=== PATIENT | male | born 1945 | race Caucasian/White ===

== ENCOUNTER 2018-11-13 19:01 | Observation (INO) ==
[2018-11-13 20:12] LABS: Basophils # 0.1 K/mcL (0.0-0.2); Basophils % 0.5 %; Eosinophils # 0.1 K/mcL (0.0-0.6); Eosinophils % 0.7 %; Hematocrit 23.3 % (37.5-50.1); Hemoglobin 7.8 g/dL (12.9-16.9); Immature Granulocytes % 1.5 % (0-4); Lymphocytes # 2.4 K/mcL (0.6-4.6); Lymphocytes % 17.2 %; Mean Corpuscular HGB Conc 33.5 g/dL (31.6-35.5); Mean Corpuscular Hemoglobin 30.2 pg (28.0-33.3); Mean Corpuscular Volume 90.3 fL (83.0-100.0); Mean Platelet Volume 10.5 fL (9.4-12.4); Monocytes # 0.8 K/mcL (0.0-1.3); Neutrophils # 10.2 K/mcL (1.6-8.9); Nucleated Red Blood Cells 0.7 /100 WBC (0); Platelet Count 201 K/mcL (140-400); Red Blood Count 2.58 M/mcL (4.19-5.50); Red Cell Distribution Width 14.2 % (11.5-14.5); Segmented Neutrophils % 74.1 %
[2018-11-13] MEDS ORDERED: Aspirin 325 MG TABLET PO ONE (20:24)
--- NOTE | 2018-11-13 20:28 | Emergency Department Note ---
Disposition Clinical Impression: Chest pain Qualifiers: Chest pain type: unspecified Qualified Code(s): R07.9 - Chest pain, unspecified Anemia Qualifiers: Anemia type: unspecified type Qualified Code(s): D64.9 - Anemia, unspecified GI bleed Qualifiers: GI bleed type/associated pathology: unspecified gastrointestinal hemorrhage type Qualified Code(s): K92.2 - Gastrointestinal hemorrhage, unspecified Chronic kidney disease Qualifiers: Chronic kidney disease stage: unspecified stage Qualified Code(s): N18.9 - Chronic kidney disease, unspecified Disposition: Admitted As Inpatient Condition: Fair Referrals: Matt Hurtado MD [Primary Care Provider] - Forms: ED Satisfaction Letter Time of Disposition: 21:06 General Adult HPI - General Chief complaint: ED Shortness of Breath/Dyspnea Stated complaint: KARIN Time Seen by Provider: 11/13/18 19:33 Source: patient Mode of arrival: ambulatory Limitations: no limitations Nursing Notes Reviewed: Yes Vital Signs Reviewed: Yes - History of Present Illness HPI Narrative: 73-year-old male penis for evaluation of dyspnea. Patient does have a history of hypertension, coronary artery disease with stent, diabetes, with remote history of renal cancer status post total nephrectomy presents for evaluation of dyspnea. Patient states that he has been feeling short of breath over the past couple days. States that dyspnea is worse with exertion and can only walk approximately 25 feet. Patient states prior to that point he could walk farther than that. Also notes increased weight gain over the winter months. Reported transient chest pain started prior to arrival. Left sided without radiation. No nausea vomiting or diaphoresis. No fevers or cough. Patient denies any lower leg swelling. No history of DVT or PE. No abdominal pain. No URI symptoms. Pain Scale: 0 - Related Data Home Medications Medication Instructions Recorded Confirmed Clopidogrel [Plavix] 75 mg PO DAILY 11/13/18 11/13/18 Gabapentin [Neurontin] 300 mg PO TID 11/13/18 11/13/18 Hydrochlorothiazide [Microzide] 12.5 mg PO TID 11/13/18 11/13/18 Allergies Allergy/AdvReac Type Severity Reaction Status Date / Time acetaminophen [From Percocet] AdvReac Headache Verified 11/13/18 12:33 oxycodone [From Percocet] AdvReac Headache Verified 11/13/18 12:33 All systems ED: reviewed and negative except as stated. Constitutional: Denies: fever Cardiovascular: Reports: chest pain Respiratory: Reports: dyspnea. Denies: cough Gastrointestinal: Denies: abdominal pain, nausea, vomiting Past Medical History - Past Medical History Attestation: Yes The following information was validated with the patient. Source: patient Medical history: Reports: cancer, hypertension, myocardial infarction - Social History Smoking Status: Never smoker Smokeless Tobacco Status: No Alcohol use: Reports: none Drug use: Reports: none Physical Exam - General Limitations: no limitations General appearance: alert, in no apparent distress, obese - Head Head exam: atraumatic, normocephalic, normal inspection - Eye Eye exam: Present: normal appearance, PERRL, EOMI - ENT ENT exam: normal exam, normal oropharynx, mucous membranes moist - Neck Neck exam: Present: normal inspection - Chest Chest inspection: Present: normal inspection - Respiratory Respiratory exam: Present: normal lung sounds bilaterally. Absent: respiratory distress - Cardiovascular Cardiovascular exam: Present: regular rate, normal rhythm. Absent: systolic murmur - Abdominal Exam Abdominal exam: Present: soft - Extremities Exam Extremities exam: Present: normal inspection. Absent: pedal edema - Back Exam Back exam: Present: normal inspection - Neurological Exam Neurological exam: Present: alert - Skin Skin exam: Present: warm, dry, intact, normal color Course Course Narrative: Patient seen and examined. Patient lungs are clear. Patient's complaining of dyspnea mostly with exertion. Patient will require a cardiopulmonary evaluation with EKG chest x-ray troponin. Patient was also deemed low risk given history of renal cancer in the past with unexplained dyspnea and tachycardia the patient is low risk for PE. - Reevaluation(s) Reevaluation #1: Patient hemoglobin is noted be low. Patient's complaining of dark stools over the past 3 days. Patient is on Plavix and aspirin. Patient did get aspirin earlier today when he is complaining of chest pain. Patient stent was in the remote past and we will hold all antiplatelet medications. Given the patient's cardiovascular disease with elevated lactate normal hemoglobin patient be transfused. Patient was deemed low risk for PE with a negative d-dimer. Time: 21:04 Vital Signs Temperature 97.3 F L 11/13/18 19:02 Pulse Rate 112 11/13/18 19:02 Respiratory Rate 22 11/13/18 19:02 Blood Pressure 146/81 11/13/18 19:02 O2 Sat by Pulse Oximetry 94 11/13/18 19:02 Temperature 97.3 F L 11/13/18 19:02 Pulse Rate 112 11/13/18 19:02 Respiratory Rate 22 11/13/18 19:02 Blood Pressure 146/81 11/13/18 19:02 O2 Sat by Pulse Oximetry 94 11/13/18 19:02 Oxygen Delivery Oxygen Delivery Room Air Medical Decision Making - MDM Narrative Medical decision making narrative: Patient presented for concerns of dyspnea. Initially the patient states dyspnea is mostly with exertion but did have transient chest pain. During the course the patient's ED evaluation was noted to be anemic. Ultimately on repeat history the patient's admitting to dark stools over the past 3 days and is on Plavix and aspirin. Patient has concerns of GI bleed. Given the patient's anemia in the setting of cardiovascular disease and chest pain. Patient will get a blood transfusion. Patient also get Protonix. D-dimer negative troponin negative patient be admitted for further evaluation and monitoring. - Lab Data Lab results reviewed: Yes I reviewed the patient's lab results. Result diagrams: 11/13/18 19:53 11/13/18 19:53 Lab Results 11/13/18 11/13/18 11/13/18 Range/Units 19:53 19:53 19:53 WBC 13.8 H (4.3-11.1) K/mcL RBC 2.58 L (4.19-5.50) M/mcL Hgb 7.8 L (12.9-16.9) g/dL Hct 23.3 L (37.5-50.1) % MCV 90.3 (83.0-100.0) fL MCH 30.2 (28.0-33.3) pg MCHC 33.5 (31.6-35.5) g/dL RDW 14.2 (11.5-14.5) % Plt Count 201 (140-400) K/mcL MPV 10.5 (9.4-12.4) fL Immature Gran % 1.5 (0-4) % Seg Neutrophils % 74.1 % Lymphocytes % 17.2 % Monocytes % 6.0 % Eosinophils % 0.7 % Basophils % 0.5 % Neutrophils # 10.2 H (1.6-8.9) K/mcL Lymphocytes # 2.4 (0.6-4.6) K/mcL Monocytes # 0.8 (0.0-1.3) K/mcL Eosinophils # 0.1 (0.0-0.6) K/mcL Basophils # 0.1 (0.0-0.2) K/mcL Nucleated RBCs/100 WBC 0.7 H (0) /100 WBC D-Dimer (0-500) ng/mLFEU Sodium 138 (136-145) mEq/L Potassium 3.6 (3.5-5.1) mEq/L Chloride 100 (98-107) mEq/L Carbon Dioxide 27 (23-29) mEq/L BUN 50 H (8-23) mg/dL Creatinine 1.55 H (0.70-1.30) mg/dL Est GFR ( Amer) 54 L (> 60) Est GFR (Non-Af Amer) 44 L (> 60) BUN/Creatinine Ratio 32 H (6-26) Glucose 283 H (70-105) mg/dL Calculated Osmolality 310 H (280-300) Lactic Acid 2.8 H (0.5-2.2) mmol/L Calcium 9.0 (8.6-10.3) mg/dL Total Bilirubin 0.2 L (0.3-1.0) mg/dL Direct Bilirubin 0.0 (0.0-0.2) mg/dL Indirect Bilirubin 0.2 (0.0-1.2) mg/dL AST 12 L (13-39) Units/L ALT 11 (7-52) Units/L Alkaline Phosphatase 43 (34-104) Units/L Troponin I < 0.03 (< 0.04) ng/mL Serum Total Protein 6.2 L (6.4-8.9) g/dL Albumin 3.8 (3.5-5.7) g/dL Globulin 2.4 (2.4-3.5) g/dL Albumin/Globulin Ratio 1.6 (1.1-2.2) Stool Occult Bld Scrn (Negative) 11/13/18 11/13/18 Range/Units 19:53 20:40 WBC (4.3-11.1) K/mcL RBC (4.19-5.50) M/mcL Hgb (12.9-16.9) g/dL Hct (37.5-50.1) % MCV (83.0-100.0) fL MCH (28.0-33.3) pg MCHC (31.6-35.5) g/dL RDW (11.5-14.5) % Plt Count (140-400) K/mcL MPV (9.4-12.4) fL Immature Gran % (0-4) % Seg Neutrophils % % Lymphocytes % % Monocytes % % Eosinophils % % Basophils % % Neutrophils # (1.6-8.9) K/mcL Lymphocytes # (0.6-4.6) K/mcL Monocytes # (0.0-1.3) K/mcL Eosinophils # (0.0-0.6) K/mcL Basophils # (0.0-0.2) K/mcL Nucleated RBCs/100 WBC (0) /100 WBC D-Dimer 344 (0-500) ng/mLFEU Sodium (136-145) mEq/L Potassium (3.5-5.1) mEq/L Chloride (98-107) mEq/L Carbon Dioxide (23-29) mEq/L BUN (8-23) mg/dL Creatinine (0.70-1.30) mg/dL Est GFR ( Amer) (> 60) Est GFR (Non-Af Amer) (> 60) BUN/Creatinine Ratio (6-26) Glucose (70-105) mg/dL Calculated Osmolality (280-300) Lactic Acid (0.5-2.2) mmol/L Calcium (8.6-10.3) mg/dL Total Bilirubin (0.3-1.0) mg/dL Direct Bilirubin (0.0-0.2) mg/dL Indirect Bilirubin (0.0-1.2) mg/dL AST (13-39) Units/L ALT (7-52) Units/L Alkaline Phosphatase (34-104) Units/L Troponin I (< 0.04) ng/mL Serum Total Protein (6.4-8.9) g/dL Albumin (3.5-5.7) g/dL Globulin (2.4-3.5) g/dL Albumin/Globulin Ratio (1.1-2.2) Stool Occult Bld Scrn Positive A (Negative) - Radiology Data Radiology results reviewed: Yes I reviewed the patient's radiology results. Chest X-Ray 11/13/18 19:05 IMPRESSION: No evidence of acute cardiopulmonary disease. D/ / Jacob Emmanuel MD / Jacob Emmanuel MD Interpreting Provider: Jacob Emmanuel MD - EKG Data EKG #1 EKG attestation: Yes I reviewed and interpreted this EKG. EKG shows normal: sinus rhythm Rate: tachycardia Merkel/QRS: normal, RBBB ST segment elevation in: II, III, aVF T wave inversions noted in: aVL (flattened) Interpretation: nonspecific ST-T wave changes S.B.AGmue - S.B.AGume Situation: Demographics Background: Presenting Complaint Assessment: Vital Signs, Course and respsone to treatment, Patient/Family Expectation Recommendation: Barrier(s) to disposition, Recommendation based on pending studies, treatments, or consults S.B.A.RAllan Report Given to: Dr. Drew MossAGume Repor Time: 21:08
[2018-11-13] MEDS ORDERED: 0.9 % Sodium Chloride 500 ML IVC ONE (20:29)
[2018-11-13 20:33] LABS: BUN/Creatinine Ratio 32 (6-26); Blood Urea Nitrogen 50 mg/dL (8-23); Carbon Dioxide 27 mEq/L (23-29); Chloride 100 mEq/L (98-107); Glucose 283 mg/dL (70-105); Osmolality,Calculated 310 (280-300); Potassium 3.6 mEq/L (3.5-5.1); Sodium 138 mEq/L (136-145); eGFR For Non-African Americans 44 (> 60)
[2018-11-13 20:35] LABS: Troponin I < 0.03 ng/mL (< 0.04)
--- NOTE | 2018-11-13 20:46 | Emergency Department Note ---
Disposition Clinical Impression: Chest pain, Anemia, GI bleed, Chronic kidney disease Disposition: Admitted As Inpatient Condition: Fair Referrals: Matt Hurtado MD [Primary Care Provider] - Forms: ED Satisfaction Letter General Adult HPI - General Chief complaint: ED Shortness of Breath/Dyspnea Stated complaint: KARIN Time Seen by Provider: 11/13/18 19:33 Source: patient Mode of arrival: ambulatory Limitations: no limitations - History of Present Illness Pain Scale: 0 - Related Data Home Medications Medication Instructions Recorded Confirmed Clopidogrel [Plavix] 75 mg PO DAILY 11/13/18 11/13/18 Gabapentin [Neurontin] 300 mg PO TID 11/13/18 11/13/18 Hydrochlorothiazide [Microzide] 12.5 mg PO TID 11/13/18 11/13/18 Allergies Allergy/AdvReac Type Severity Reaction Status Date / Time acetaminophen [From Percocet] AdvReac Headache Verified 11/13/18 12:33 oxycodone [From Percocet] AdvReac Headache Verified 11/13/18 12:33 Constitutional: Denies: fever Cardiovascular: Reports: chest pain Respiratory: Reports: dyspnea. Denies: cough Gastrointestinal: Denies: abdominal pain, nausea, vomiting Past Medical History - Past Medical History Medical history: Reports: cancer, hypertension, myocardial infarction - Social History Smoking Status: Never smoker Smokeless Tobacco Status: No Alcohol use: Reports: none Drug use: Reports: none Physical Exam - General Limitations: no limitations General appearance: alert, in no apparent distress, obese Course Vital Signs Temperature 97.3 F L 11/13/18 19:02 Pulse Rate 112 11/13/18 19:02 Respiratory Rate 22 11/13/18 19:02 Blood Pressure 146/81 11/13/18 19:02 O2 Sat by Pulse Oximetry 94 11/13/18 19:02 Temperature 97.3 F L 11/13/18 19:02 Pulse Rate 112 11/13/18 19:02 Respiratory Rate 22 11/13/18 19:02 Blood Pressure 146/81 11/13/18 19:02 O2 Sat by Pulse Oximetry 94 11/13/18 19:02 Oxygen Delivery Oxygen Delivery Room Air Medical Decision Making - Lab Data Result diagrams: 11/13/18 19:53 11/13/18 19:53 Lab Results 04/17/19 04/17/19 04/17/19 Range/Units 19:53 19:53 19:53 WBC 13.8 H (4.3-11.1) K/mcL RBC 2.58 L (4.19-5.50) M/mcL Hgb 7.8 L (12.9-16.9) g/dL Hct 23.3 L (37.5-50.1) % MCV 90.3 (83.0-100.0) fL MCH 30.2 (28.0-33.3) pg MCHC 33.5 (31.6-35.5) g/dL RDW 14.2 (11.5-14.5) % Plt Count 201 (140-400) K/mcL MPV 10.5 (9.4-12.4) fL Immature Gran % 1.5 (0-4) % Seg Neutrophils % 74.1 % Lymphocytes % 17.2 % Monocytes % 6.0 % Eosinophils % 0.7 % Basophils % 0.5 % Neutrophils # 10.2 H (1.6-8.9) K/mcL Lymphocytes # 2.4 (0.6-4.6) K/mcL Monocytes # 0.8 (0.0-1.3) K/mcL Eosinophils # 0.1 (0.0-0.6) K/mcL Basophils # 0.1 (0.0-0.2) K/mcL Nucleated RBCs/100 WBC 0.7 H (0) /100 WBC D-Dimer (0-500) ng/mLFEU Sodium 138 (136-145) mEq/L Potassium 3.6 (3.5-5.1) mEq/L Chloride 100 (98-107) mEq/L Carbon Dioxide 27 (23-29) mEq/L BUN 50 H (8-23) mg/dL Creatinine 1.55 H (0.70-1.30) mg/dL Est GFR ( Amer) 54 L (> 60) Est GFR (Non-Af Amer) 44 L (> 60) BUN/Creatinine Ratio 32 H (6-26) Glucose 283 H (70-105) mg/dL Calculated Osmolality 310 H (280-300) Lactic Acid 2.8 H (0.5-2.2) mmol/L Calcium 9.0 (8.6-10.3) mg/dL Total Bilirubin 0.2 L (0.3-1.0) mg/dL Direct Bilirubin 0.0 (0.0-0.2) mg/dL Indirect Bilirubin 0.2 (0.0-1.2) mg/dL AST 12 L (13-39) Units/L ALT 11 (7-52) Units/L Alkaline Phosphatase 43 (34-104) Units/L Troponin I < 0.03 (< 0.04) ng/mL Serum Total Protein 6.2 L (6.4-8.9) g/dL Albumin 3.8 (3.5-5.7) g/dL Globulin 2.4 (2.4-3.5) g/dL Albumin/Globulin Ratio 1.6 (1.1-2.2) Stool Occult Bld Scrn (Negative) 11/13/18 11/13/18 Range/Units 19:53 20:40 WBC (4.3-11.1) K/mcL RBC (4.19-5.50) M/mcL Hgb (12.9-16.9) g/dL Hct (37.5-50.1) % MCV (83.0-100.0) fL MCH (28.0-33.3) pg MCHC (31.6-35.5) g/dL RDW (11.5-14.5) % Plt Count (140-400) K/mcL MPV (9.4-12.4) fL Immature Gran % (0-4) % Seg Neutrophils % % Lymphocytes % % Monocytes % % Eosinophils % % Basophils % % Neutrophils # (1.6-8.9) K/mcL Lymphocytes # (0.6-4.6) K/mcL Monocytes # (0.0-1.3) K/mcL Eosinophils # (0.0-0.6) K/mcL Basophils # (0.0-0.2) K/mcL Nucleated RBCs/100 WBC (0) /100 WBC D-Dimer 344 (0-500) ng/mLFEU Sodium (136-145) mEq/L Potassium (3.5-5.1) mEq/L Chloride (98-107) mEq/L Carbon Dioxide (23-29) mEq/L BUN (8-23) mg/dL Creatinine (0.70-1.30) mg/dL Est GFR ( Amer) (> 60) Est GFR (Non-Af Amer) (> 60) BUN/Creatinine Ratio (6-26) Glucose (70-105) mg/dL Calculated Osmolality (280-300) Lactic Acid (0.5-2.2) mmol/L Calcium (8.6-10.3) mg/dL Total Bilirubin (0.3-1.0) mg/dL Direct Bilirubin (0.0-0.2) mg/dL Indirect Bilirubin (0.0-1.2) mg/dL AST (13-39) Units/L ALT (7-52) Units/L Alkaline Phosphatase (34-104) Units/L Troponin I (< 0.04) ng/mL Serum Total Protein (6.4-8.9) g/dL Albumin (3.5-5.7) g/dL Globulin (2.4-3.5) g/dL Albumin/Globulin Ratio (1.1-2.2) Stool Occult Bld Scrn Positive A (Negative) Critical Care Time Critical Care Time: Yes Total Critical Care Time: 40 Attestation: Critical care performed: Time is exclusive of separately billable procedures. Time includes: direct patient care, patient reassessment, coordination of patient care, interpretation of data (laboratory data, radiology data, and respiratory data), review of patient's medical records, medical consultation and documentation of patient care. Procedures included in critical care time: Procedures excluded from critical care time: t. Attestation Statement - Attestation Attestation: I examined this patient and my medical decision-making was reviewed with the Resident Physician. I agree with the documented findings, disposition and treatment plan as described except to the extent set forth below. Patient presents to the emergency department with a chief complaint of dyspnea on exertion. Onset several days ago. Dry cough. No fever. He does have a history of renal cancer for which she had an nephrectomy. Patient is thought to be cancer free at this time. He denies any pain or swelling in his legs. He de nies any history of blood clots. On examination he appears well. Lungs sounds clear. No pedal edema. He is satting well on room air. He is noted to be mildly tachycardic in the low 100s. Plan. Cardiac workup with d-dimer. Dimer is negative. Hemoglobin is low. Patient had a sore Hemoccult was positive. We will transfuse. Admitted to medicine. Chest X-Ray 11/13/18 19:05 IMPRESSION: No evidence of acute cardiopulmonary disease. D/ / Jacob Emmanuel MD / Jacob Emmanuel MD Interpreting Provider: Jacob Emmanuel MD
[2018-11-13 20:47] LABS: Alanine Aminotransferase 11 Units/L (7-52); Albumin 3.8 g/dL (3.5-5.7); Albumin/Globulin Ratio 1.6 (1.1-2.2); Alkaline Phosphatase 43 Units/L (34-104); Aspartate Amino Transferase 12 Units/L (13-39); Bilirubin,Indirect 0.2 mg/dL (0.0-1.2); Bilirubin,Total 0.2 mg/dL (0.3-1.0); Globulin 2.4 g/dL (2.4-3.5); Total Protein 6.2 g/dL (6.4-8.9)
[2018-11-13] MEDS ORDERED: Pantoprazole 40 MG VIAL IVP ONE (21:01)
[2018-11-13] MEDS ORDERED: Naloxone 0.4 MG/ML INJ IVP PRN (21:57)
[2018-11-13 22:17] LABS: Bilirubin,Urine Negative (Negative); Blood,Urine Negative (Negative); Clarity,Urine Clear (Clear); Color,Urine Yellow (Yellow); Glucose,Urine (UA) 100 mg/dL (Normal); Ketones,Urine Negative (Negative); Leukocyte Esterase,Urine Negative (Negative); Nitrite,Urine Negative (Negative); PH,Urine 6.5 pH Units (5.0-8.0); Protein,Urine Trace mg/dL (Neg-Trace); Specific Gravity,Urine 1.022 (1.010-1.025); Urobilinogen,Urine Normal (Normal)
[2018-11-14] MEDS ORDERED: 0.9 % Sodium Chloride 250 ML ONE ×2 (00:33→12:04)
[2018-11-14 05:39] LABS: Hematocrit 24.1 % (37.5-50.1); Hemoglobin 7.9 g/dL (12.9-16.9); Mean Corpuscular HGB Conc 32.8 g/dL (31.6-35.5); Mean Corpuscular Hemoglobin 29.6 pg (28.0-33.3); Mean Corpuscular Volume 90.3 fL (83.0-100.0); Mean Platelet Volume 10.5 fL (9.4-12.4); Platelet Count 194 K/mcL (140-400); Red Blood Count 2.67 M/mcL (4.19-5.50); Red Cell Distribution Width 14.6 % (11.5-14.5)
[2018-11-14 05:52] LABS: Calcium 8.8 mg/dL (8.6-10.3); Potassium 3.3 mEq/L (3.5-5.1)
[2018-11-14] MEDS ORDERED: 0.9 % Sodium Chloride 1,000 ML IVC ONE (06:32)
--- NOTE | 2018-11-14 06:37 | Internal Med History&Physical ---
Date of Encounter: 11/14/18 Time of Encounter: 04:00 Internal Medicine - H&P: HPI Chief complaint: GI bleed Admitted From: Emergency Dept Plans for Post Hospital Care: Home History of present illness: Mr. Lr is a 73 year old male Patient presented to the ER with feelings of shortness of breath and weakness. He states that he has woken up and was short of breath when he was trying to walk to his dining room. He went to his PCP in [place] for evaluation, because he thought he had pneumonia. He had a similar presentation like this previously and it started with shortness of breath. After being evaluated there, his PCP recommended he go to the emergency room as patient also mentioned to him that he had black stools 3 days ago. He never had this before. He has history of colonoscopy 8 years ago, says that he had one polyp that was found, and removed. He denies vomiting blood, and denies bright red blood in his stool. He is also had on and off chest pain with no radiation. He is also noted about a 40 pound weight gain over the last several months. His PCP recently diagnosed him with diabetes, for which he takes oral medications. Upon arrival to the emergency room, patient's vitals indicated elevated heart rate of 112 and respiratory rate of 22. He was saturating at 94% on room air. Patient's CBC revealed a white count of 13.8, and hemoglobin of 7.8. A d-dimer was ordered but was not elevated. BMP revealed a creatinine of 1.55 which is approximately his baseline. Glucose was 283 and lactic acid was 2.0. Patient's troponin was undetectable. Urinalysis was negative for infection, and stool occult blood test was positive. Patient was typed and screened, and patient was transfused 1 unit. He was transferred to the medical floor for further management. Upon my evaluation, patient is resting comfortably in hospital bed in no acute distress. He denies chest pain, abdominal pain, nausea, vomiting, diarrhea and constipation. He confirms the history above, and also states that he has a history of renal cancer, status post nephrectomy patient also has 1 cardiac stent placed. He denies significant family history of colon cancer or other types of cancers, but does say that diabetes runs on both sides of his family. He is a full code. Past Med Surg Social Fam HX - Past Medical History Medical history: cancer, diabetes, hypertension, myocardial infarction Additional medical history: kidney cancer, AR with stent - Past Surgical History Surgical History: angioplasty/stent, herniorrhaphy Additional surgical history: R kidney removal, 1 cardiac stent, 2 spinal fusions - Social History Smoking Status: Never smoker Smokeless Tobacco Status: No Alcohol use: none Drug use: none Internal Medicine - H&P: Meds Aspirin [Lo-Dose Aspirin EC] 81 mg PO DAILY 11/13/18 [History] Clopidogrel [Plavix] 75 mg PO DAILY 11/13/18 [History] Gabapentin [Neurontin] 300 mg PO BID 11/13/18 [History] Glimepiride [Amaryl] 4 mg PO DAILY 11/13/18 [History] HYDROcodone/Acet 5/325 mg [Hanna 5-325 mg] 1 tab PO BID PRN 11/13/18 [History] Hydrocodone/Acetaminophen [[place]anna 5-325 Tablet] 2 tab PO HS 11/13/18 [History] hydroCHLOROthiazide [Hydrochlorothiazide] 25 mg PO DAILY 11/13/18 [History] Allergy/AdvReac Type Severity Reaction Status Date / Time acetaminophen [From Percocet] AdvReac Headache Verified 11/13/18 21:37 oxycodone [From Percocet] AdvReac Headache Verified 11/13/18 21:37 All Systems PM: A 10-system review of systems was performed and is negative for pertinent findings except as documented above in the HPI. - Constitutional Vitals: Temp Pulse Resp BP Pulse Ox 97.4 F L 91 14 119/67 93 11/14/18 04:07 11/14/18 04:07 11/14/18 04:07 11/14/18 04:07 11/14/18 04:07 General appearance: Present: cooperative, A&O X 3, pleasant, no acute distress, answers questions appropriately Exam: - - Head Head exam: Present: normal inspection - Eye Eye exam: Present: EOMI, normal appearance - Respiratory Respiratory exam: Present: CTAB. Absent: rales, respiratory distress, rhonchi, wheezes - Cardiovascular Cardiovascular exam: Present: RRR. Absent: diastolic murmur, systolic murmur - GI/Abdominal GI/Abdominal exam: Present: normal bowel sounds, soft. Absent: tenderness - Extremities Exam Extremities exam: Present: warm, radial pulses palpable and symmetrical. Absent: calf tenderness, pedal edema, tenderness - Neurological Exam Neurological exam: Present: no focal deficits, strengths equal and symetr throughout. Absent: motor sensory deficit, facial droop, speech deficit Additional comments: Patient has a left foot drop at baseline secondary to back surgery - Skin Skin exam: Present: dry, normal color, warm Internal Med - H&P Results - Labs CBC & Chem 7: 11/14/18 04:57 11/14/18 04:57 Labs: Short CBC 11/13/18 11/14/18 Range/Units 19:53 04:57 WBC 13.8 H 13.4 H (4.3-11.1) K/mcL Hgb 7.8 L 7.9 L (12.9-16.9) g/dL Hct 23.3 L 24.1 L (37.5-50.1) % Plt Count 201 194 (140-400) K/mcL Neutrophils # 10.2 H (1.6-8.9) K/mcL BMP 11/13/18 11/14/18 19:53 04:57 Sodium 138 138 Potassium 3.6 3.3 L Chloride 100 104 Carbon Dioxide 27 29 BUN 50 H 45 H Creatinine 1.55 H 1.52 H Glucose 283 H 132 H Calcium 9.0 8.8 Cardiac Enzymes 11/13/18 Range/Units 19:53 Troponin I < 0.03 (< 0.04) ng/mL Liver Function 11/13/18 Range/Units 19:53 Total Bilirubin 0.2 L (0.3-1.0) mg/dL Direct Bilirubin 0.0 (0.0-0.2) mg/dL AST 12 L (13-39) Units/L ALT 11 (7-52) Units/L Alkaline Phosphatase 43 (34-104) Units/L Albumin 3.8 (3.5-5.7) g/dL Urine 11/13/18 Range/Units 22:11 Urine Color Yellow (Yellow) Urine Clarity Clear (Clear) Urine pH 6.5 (5.0-8.0) pH Units Ur Specific [place] 1.022 (1.010-1.025) Urine Protein Trace (Neg-Trace) mg/dL Urine Glucose (UA) 100 H (Normal) mg/dL - Impressions ITS Impressions Chest X-Ray 11/13/18 19:05 IMPRESSION: No evidence of acute cardiopulmonary disease. D/ / Jacob Emmanuel MD / Jacob Emmanuel MD Interpreting Provider: Jacob Emmanuel MD - Assessment and Plan (1) GI bleed Current Visit: Yes Status: Acute Assessment and plan: Positive stool occult blood tests. Patient's hemoglobin 7.8 and emergency room, on recheck 7.9 after 1 unit PRBCs. Continue to trend hemoglobin GI consult Nothing by mouth IV protonix Qualifiers: GI bleed type/associated pathology: unspecified gastrointestinal hemorrhage type Qualified Code(s): K92.2 - Gastrointestinal hemorrhage, unspecified (2) Anemia Current Visit: Yes Status: Acute Assessment and plan: Secondary to GI bleed. Patient was transfused 1 unit in the emergency room after type and screen. Hemoglobin 7.9 after 1 unit, on admission hemoglobin was 7.8. GI consult in the morning for likely scope Management as above Qualifiers: Anemia type: unspecified type Qualified Code(s): D64.9 - Anemia, unspecified (3) Chest pain Current Visit: Yes Status: Acute Assessment and plan: Patient denies chest pain currently. Initial troponin undetectable, on recheck troponin continues to be undetectable. Likely chest pain secondary to shortness of breath as patient is anemic. compliance monitor Continue to trend troponins Consider echocardiogram in the morning Qualifiers: Chest pain type: unspecified Qualified Code(s): R07.9 - Chest pain, unspecified (4) Dyspnea Current Visit: No Status: Acute Assessment and plan: Likely secondary to anemia. No wheezing on exam. Patient has no history of smoking. Management of anemia as above Qualifiers: Dyspnea type: shortness of breath Qualified Code(s): R06.02 - Shortness of breath; R06.00 - Dyspnea, unspecified; R06.01 - Orthopnea (5) Diabetes Current Visit: Yes Status: Acute Assessment and plan: Patient is not an insulin dependent diabetic Monitor sugars every 6 hours Nothing by mouth Low dose insulin sliding scale as needed Hold home meds. 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
[2018-11-14] MEDS ORDERED: Dextrose Gel 15 GM/37.5 ML TUBE PO PRN ×2 (06:55)
[2018-11-14] MEDS ORDERED: D5% in Water 1,000 ML IVC PRN (06:55)
[2018-11-14] MEDS ORDERED: *HR* Dextrose 50 % in Water (Syg) 50 ML SYRINGE IVP PRN (06:55)
[2018-11-14 09:02] LABS: % Iron Saturation 26 % (20-55); Iron 88 mcg/dL (65-175); Transferrin 239 mg/dL (203-362)
--- NOTE | 2018-11-14 09:02 | Internal Med Progress Note ---
<Latanya Birch - Last Filed: 11/14/18 16:22> Hospitalist Progress Note - Encounter Date of Encounter: 11/14/18 - Exam Vitals: Temp Pulse Resp BP Pulse Ox 97.6 F 91 14 108/70 93 11/14/18 10:36 11/14/18 10:36 11/14/18 10:36 11/14/18 10:36 11/14/18 10:36 - Assessment and Plan (1) Chest pain Current Visit: Yes Status: Acute (2) Anemia Current Visit: Yes Status: Acute (3) GI bleed Current Visit: Yes Status: Acute (4) Diabetes Current Visit: Yes Status: Acute (5) Hypokalemia Current Visit: Yes Status: Acute - Time Spent with Patient Total time spent is greater than 50% in coordination of care (as documented) at patient's floor/unit and/or counseling patient: Internal Medicine: Result - Labs CBC & Chem 7: 11/14/18 04:57 11/14/18 04:57 Labs: Short CBC 11/13/18 11/14/18 Range/Units 19:53 04:57 WBC 13.8 H 13.4 H (4.3-11.1) K/mcL Hgb 7.8 L 7.9 L (12.9-16.9) g/dL Hct 23.3 L 24.1 L (37.5-50.1) % Plt Count 201 194 (140-400) K/mcL Neutrophils # 10.2 H (1.6-8.9) K/mcL BMP 11/13/18 11/14/18 19:53 04:57 Sodium 138 138 Potassium 3.6 3.3 L Chloride 100 104 Carbon Dioxide 27 29 BUN 50 H 45 H Creatinine 1.55 H 1.52 H Glucose 283 H 132 H Calcium 9.0 8.8 Cardiac Enzymes 11/13/18 11/14/18 11/14/18 Range/Units 19:53 04:57 07:38 Troponin I < 0.03 < 0.03 < 0.03 (< 0.04) ng/mL Liver Function 11/13/18 Range/Units 19:53 Total Bilirubin 0.2 L (0.3-1.0) mg/dL Direct Bilirubin 0.0 (0.0-0.2) mg/dL AST 12 L (13-39) Units/L ALT 11 (7-52) Units/L Alkaline Phosphatase 43 (34-104) Units/L Albumin 3.8 (3.5-5.7) g/dL Urine 11/13/18 Range/Units 22:11 Urine Color Yellow (Yellow) Urine Clarity Clear (Clear) Urine pH 6.5 (5.0-8.0) pH Units Ur Specific [place] 1.022 (1.010-1.025) Urine Protein Trace (Neg-Trace) mg/dL Urine Glucose (UA) 100 H (Normal) mg/dL - ABG Interpretation ABG results: PT/INR, D-dimer PT 13.3 Seconds (9.4-12.1) H 11/14/18 11:53 D-Dimer 344 ng/mLFEU (0-500) 11/13/18 19:53 - Impressions Impressions Chest X-Ray 11/13/18 19:05 IMPRESSION: No evidence of acute cardiopulmonary disease. D/ / Jacob Emmanuel MD / Jacob Emmaunel MD Interpreting Provider: Jacob Emmanuel MD Consult Discharge Plan - Plan Referrals: Matt Hurtado MD [Primary Care Provider] - - Attending Attestation I examined this patient and my medical decision-making was reviewed with the Resident Physician Dr Gregory. I agree with the documented findings, disposition and treatment plan as described except to the extent set forth below. Mr Lr is being observed for suspected gib and anemia awake, pleasant, awaiting gi eval. He has had no bms since admit, no bleeding, no abd pain, n/v. notes 3 days ago black bms which were new. no nsaids, iron supplements. He has taken pepto bismol this week but after melena occurred. No further chest pain, no pressure, sob, palpitations or presyncope. last stent was 5 years ago. gen- alert, awake,appears stated age eyes- pupils equal round, no conjunctival pallor cv- reg rate and rhythm, normal s1,s2, no murmurs appreciated, no le edema lungs- ctabl, no wheezing, rhonchi or crackles, normal resp effort abd- soft, non tender, non distended, + bs neuro- AAOx3 Shortness of breath, without hypoxia, suspect 2/2 gib anemia- CXR neg, gib work up/treatment Melena, stool occult + GIB -s/p prbcs, serial h/hs, npo, gi eval, IV PPI -prbc to keep hgb >8 with CAD hx and chest pain on admit Acute anemia 2/2 gi blood loss as above Hemodynamically stable Leukocytosis likely stress reaction in setting of bleed as afebrile and ros neg- cont to monitor UA and CXR neg Chest pain, resolved CAD Hx with PCI most recently 5 yr ago HTN -hold home asa/plavix in setting of bleed -trops negative and ekg without ischemic changes further diagnoses and plan as noted by resident <Rashaad Gregory - Last Filed: 11/14/18 17:47> Hospitalist Progress Note - Encounter Date of Encounter: 11/14/18 Time of Encounter: 08:45 - Subjective Interval History: Patient seen and examined at bedside; states that he is feeling well today. De nies having any abdominal pain. He has not had a bowel movement yet this morning. Denies having any chest pain, palpitations, shortness of breath, dizziness, or lightheadedness. No complaints at this time. - Exam Vitals: Temp Pulse Resp BP Pulse Ox 98.1 F 97 14 112/64 92 11/14/18 06:33 11/14/18 06:33 11/14/18 06:33 11/14/18 06:33 11/14/18 06:33 Exam: General: A&O X3, conversant, no acute distress Head: atraumatic, normocephalic Eye: PERRL, EOMI, conjuntiva pink, sclera anicteric Neck: Supple, trachea midline; No lymphadenopathy Respiratory: CTAB. No accessory muscle use, wheezes, rales, or rhonchi Cardiovascular: RRR, +S1, +S2; no murmurs, rubs, gallops Abdomen: Soft, nontender Extremities: warm, radial pulses palpable and symmetrical Psychiatric: Normal affect, normal mood Skin: Dry, intact - Assessment and Plan (1) GI bleed Current Visit: Yes Status: Acute Assessment and Plan: - Initially presented with shortness of breath and weakness; reported dark colored stools 3 days prior to presentation - Colonoscopy 8 years ago; one polyp was found and removed - Denied bright red blood per rectum - FOBT was positive - Labs demonstrated a low hemoglobin at 7.8; patient was transfused with one unit of packed red blood cells - Repeat hemoglobin this morning is 7.9 - GI has been consulted; plan is for EGD later today Plan: - Currently nothing by mouth - IV protonix - EGD this afternoon (2) Anemia Current Visit: Yes Status: Acute Assessment and Plan: - As above (3) Chest pain Current Visit: Yes Status: Acute Assessment and Plan: - Initially complained of chest pain - Initial troponin was less than 0.03; subsequent troponin is less than 0.03 - Continuous telemetry (4) Hypokalemia Current Visit: Yes Status: Acute Assessment and Plan: - Potassium is noted to be low at 3.3 - Will replace (5) Diabetes Current Visit: Yes Status: Acute Assessment and Plan: - Sliding scale insulin - Time Spent with Patient Total time spent is greater than 50% in coordination of care (as documented) at patient's floor/unit and/or counseling patient: 25 - 35 minutes Internal Medicine: Result - Labs CBC & Chem 7: 11/14/18 04:57 11/14/18 04:57 Labs: Short CBC 11/13/18 11/14/18 Range/Units 19:53 04:57 WBC 13.8 H 13.4 H (4.3-11.1) K/mcL Hgb 7.8 L 7.9 L (12.9-16.9) g/dL Hct 23.3 L 24.1 L (37.5-50.1) % Plt Count 201 194 (140-400) K/mcL Neutrophils # 10.2 H (1.6-8.9) K/mcL BMP 11/13/18 11/14/18 19:53 04:57 Sodium 138 138 Potassium 3.6 3.3 L Chloride 100 104 Carbon Dioxide 27 29 BUN 50 H 45 H Creatinine 1.55 H 1.52 H Glucose 283 H 132 H Calcium 9.0 8.8 Cardiac Enzymes 11/13/18 11/14/18 11/14/18 Range/Units 19:53 04:57 07:38 Troponin I < 0.03 < 0.03 < 0.03 (< 0.04) ng/mL Liver Function 11/13/18 Range/Units 19:53 Total Bilirubin 0.2 L (0.3-1.0) mg/dL Direct Bilirubin 0.0 (0.0-0.2) mg/dL AST 12 L (13-39) Units/L ALT 11 (7-52) Units/L Alkaline Phosphatase 43 (34-104) Units/L Albumin 3.8 (3.5-5.7) g/dL Urine 11/13/18 Range/Units 22:11 Urine Color Yellow (Yellow) Urine Clarity Clear (Clear) Urine pH 6.5 (5.0-8.0) pH Units Ur Specific [place] 1.022 (1.010-1.025) Urine Protein Trace (Neg-Trace) mg/dL Urine Glucose (UA) 100 H (Normal) mg/dL - ABG Interpretation ABG results: PT/INR, D-dimer D-Dimer 344 ng/mLFEU (0-500) 11/13/18 19:53 - Impressions Impressions Chest X-Ray 11/13/18 19:05 IMPRESSION: No evidence of acute cardiopulmonary disease. D/ / Jacob Emmanuel MD / Jacob Emmanuel MD Interpreting Provider: Jacob Emmanuel MD <Latanya Birch - Last Filed: 11/14/18 16:22> (1) Chest pain Qualifiers: Chest pain type: unspecified Qualified Code(s): R07.9 - Chest pain, unspecified (2) Anemia Qualifiers: Anemia type: unspecified type Qualified Code(s): D64.9 - Anemia, unspecified (3) GI bleed Qualifiers: GI bleed type/associated pathology: unspecified gastrointestinal hemorrhage type Qualified Code(s): K92.2 - Gastrointestinal hemorrhage, unspecified (4) Diabetes Qualifiers: Diabetes mellitus type: type 2 Diabetes mellitus terminal operations supervisor insulin use: without terminal operations supervisor use Diabetes mellitus complication status: with hyperglycemia Qualified Code(s): E11.65 - Type 2 diabetes mellitus with hyperglycemia <Rashaad Gregory - Last Filed: 11/14/18 17:47> (1) GI bleed Qualifiers: GI bleed type/associated pathology: unspecified gastrointestinal hemorrhage type Qualified Code(s): K92.2 - Gastrointestinal hemorrhage, unspecified (2) Anemia Qualifiers: Anemia type: unspecified type Qualified Code(s): D64.9 - Anemia, unspecified (3) Chest pain Qualifiers: Chest pain type: unspecified Qualified Code(s): R07.9 - Chest pain, unspecified (5) Diabetes Qualifiers: Diabetes mellitus type: type 2 Diabetes mellitus snf insulin use: without terminal operations supervisor use Diabetes mellitus complication status: with hyperglycemia Qualified Code(s): E11.65 - Type 2 diabetes mellitus with hyperglycemia
[2018-11-14 09:20] LABS: Ferritin 171 ng/mL (20-250)
[2018-11-14 09:31] LABS: Folate 17.7 ng/mL (3.0-16.0)
[2018-11-14] MEDS ORDERED: Cyanocobalamin (B-12) 1,000 MCG/ML VIAL SQ ONE (11:36)
--- NOTE | 2018-11-14 12:19 | Gastroenterology Consult Note ---
<OrtizErmias grullon Jero - Last Filed: 11/14/18 12:17> Date of Encounter: 11/14/18 Time of Encounter: 10:00 - Assessment and plan (1) GI bleed Current Visit: Yes Status: Acute Assessment and plan: Patient with black tarry stools over the past 3-4 days. Plan for EGD today to r/o esophagitis, gastritis, duodenitis, PUD, MW tear, or AVM. Keep patient NPO for EGD. Qualifiers: GI bleed type/associated pathology: unspecified gastrointestinal hemorrhage type Qualified Code(s): K92.2 - Gastrointestinal hemorrhage, unspecified (2) Anemia Current Visit: Yes Status: Acute Assessment and plan: Secondary to GI bleed. On admission Hgb 7.8 and FOBT positive, and received 1 unit PRBC. Hgb this AM 7.9. Continue to monitor CBC and transfuse PRBC as needed. Plan for EGD today. Qualifiers: Anemia type: unspecified type Qualified Code(s): D64.9 - Anemia, unspecified - Time Spent With Patient Total time spent is greater than 50% in coordination of care (as documented) at patient's floor/unit and/or counseling patient: GI History of Present Illness - Data of Consult Patient: new to practice Consult date: 11/14/18 Requesting Physician: Latanya Birch - Consult Narrative Reason for consult: GI bleed History of present illness: Mr. Lr is a 73 year old male with PMHx of kidney cancer, DM, HTN, NH with stent was sent to the ED by his PCP for complaints of shortness of breath, weakness, and black stool. He deneis any abdominal pain, nausea, vomiting, hematemesis, coffee-ground emesis, or hematochezia. On admission Hgb 7.8 and FOBT positive, and received 1 unit PRBC. Hgb this AM 7.9. We were consulted to evaluate his black stools and anemia. Procedures: Colonoscopy 10/02/2011 Sever: 3mm and 4mm tubular adenoma. NSAIDs: ASA Anticoagulation: Plavix Past Med Surg Social Fam HX - Past Medical History Medical history: cancer, diabetes, hypertension, myocardial infarction Additional medical history: kidney cancer, NH with stent - Past Surgical History Surgical History: angioplasty/stent, herniorrhaphy Additional surgical history: R kidney removal, 1 cardiac stent, 2 spinal fusions - Social History Smoking Status: Never smoker Smokeless Tobacco Status: No Alcohol use: none Drug use: none - Gastrointestinal Gastrointestinal: Present: as per HPI - Constitutional Constitutional: as per HPI - EENT Eyes: as per HPI Ears: Present: as per HPI Nose, mouth and throat: Present: as per HPI - Cardiovascular Cardiovascular ROS: Present: as per HPI - Respiratory Respiratory IM: Present: as per HPI - Genitourinary Genitourinary: Absent: change in color, Urinary frequency - Neurological ROS Neurological GI: Present: as per HPI - Hematologic/Lymphatic Hematologic/Lymphatic pediatric: Present: as per HPI - Musculoskeletal Musculoskeletal ROS GI: Present: as per HPI - Integumentary Integumentary GI: Present: as per HPI - Psychiatric ROS Psychiatric GI: Present: as per HPI - Endocrine Endocrine IM: Present: as per HPI - Constitutional Vitals: Temp Pulse Resp BP Pulse Ox 97.6 F 91 14 108/70 93 11/14/18 10:36 11/14/18 10:36 11/14/18 10:36 11/14/18 10:36 11/14/18 10:36 General appearance: Present: cooperative, A&O X 3, no acute distress, answers questions appropriately - Head Head exam: Present: atraumatic, normocephalic - Eye Eye exam: Present: normal appearance, sclera anicteric - ENT ENT exam: Present: mucous membranes dry - Neck Neck exam general surgery: Present: normal inspection, trachea midline - Respiratory Respiratory exam: Present: CTAB. Absent: rales, rhonchi - Cardiovascular Cardiovascular exam: Present: RRR, +S1, +S2 - GI/Abdominal GI/Abdominal exam: Present: soft, no peritoneal signs. Absent: distended, firm, guarding, tenderness - Rectal Rectal exam: Present: deferred - Extremities Exam Extremities exam: Present: warm - Neurological Exam Neurological exam: Present: no focal deficits - Psychiatric Psychiatric exam: Present: normal affect, normal mood - Skin Skin exam: Present: dry, intact, normal color, warm Results - Labs CBC & Chem 7: 11/14/18 04:57 11/14/18 04:57 Labs: Last Result Calcium 8.8 mg/dL (8.6-10.3) 11/14/18 04:57 Iron 88 mcg/dL (65-175) 11/13/18 19:53 % Saturation 26 % (20-55) 11/13/18 19:53 Transferrin 239 mg/dL (203-362) 11/13/18 19:53 Ferritin 171 ng/mL (20-250) 11/13/18 19:53 Troponin I < 0.03 ng/mL (< 0.04) 11/14/18 07:38 Vitamin B12 210 pg/mL (250-1100) L 11/13/18 19:53 Folate 17.7 ng/mL (3.0-16.0) H 11/13/18 19:53 Entire Visit Hgb 7.9 g/dL (12.9-16.9) L 11/14/18 04:57 Hct 24.1 % (37.5-50.1) L 11/14/18 04:57 Ferritin 171 ng/mL (20-250) 11/13/18 19:53 Total Bilirubin 0.2 mg/dL (0.3-1.0) L 11/13/18 19:53 AST 12 Units/L (13-39) L 11/13/18 19:53 ALT 11 Units/L (7-52) 11/13/18 19:53 Folate 17.7 ng/mL (3.0-16.0) H 11/13/18 19:53 - ABG ABG results: PT/INR, D-dimer D-Dimer 344 ng/mLFEU (0-500) 11/13/18 19:53 - Impressions Impressions Chest X-Ray 11/13/18 19:05 IMPRESSION: No evidence of acute cardiopulmonary disease. D/ / Jacob Emmanuel MD / Jacob Emmanuel MD Interpreting Provider: Jacob Emmanuel MD Consult Discharge Plan - Plan Referrals: Matt Hurtado MD [Primary Care Provider] - <Lan Arora - Last Filed: 11/14/18 18:55> Date of Encounter: 11/14/18 Time of Encounter: 17:00 - Time Spent With Patient Total time spent is greater than 50% in coordination of care (as documented) at patient's floor/unit and/or counseling patient: GI History of Present Illness - Data of Consult Requesting Physician: Latanya Birch - Consult Narrative History of present illness: Mr. Lr is a 73 year old male - Constitutional Vitals: Temp Pulse Resp BP Pulse Ox 97.7 F 85 20 152/89 99 11/14/18 15:14 11/14/18 18:10 11/14/18 18:10 11/14/18 18:10 11/14/18 18:10 Results - Labs CBC & Chem 7: 11/14/18 04:57 11/14/18 04:57 Labs: Last Result Calcium 8.8 mg/dL (8.6-10.3) 11/14/18 04:57 Iron 88 mcg/dL (65-175) 11/13/18 19:53 % Saturation 26 % (20-55) 11/13/18 19:53 Transferrin 239 mg/dL (203-362) 11/13/18 19:53 Ferritin 171 ng/mL (20-250) 11/13/18 19:53 Troponin I < 0.03 ng/mL (< 0.04) 11/14/18 07:38 Vitamin B12 210 pg/mL (250-1100) L 11/13/18 19:53 Folate 17.7 ng/mL (3.0-16.0) H 11/13/18 19:53 Entire Visit Hgb 7.9 g/dL (12.9-16.9) L 11/14/18 04:57 Hct 24.1 % (37.5-50.1) L 11/14/18 04:57 PT 13.3 Seconds (9.4-12.1) H 11/14/18 11:53 Ferritin 171 ng/mL (20-250) 11/13/18 19:53 Total Bilirubin 0.2 mg/dL (0.3-1.0) L 11/13/18 19:53 AST 12 Units/L (13-39) L 11/13/18 19:53 ALT 11 Units/L (7-52) 11/13/18 19:53 Folate 17.7 ng/mL (3.0-16.0) H 11/13/18 19:53 - ABG ABG results: PT/INR, D-dimer PT 13.3 Seconds (9.4-12.1) H 11/14/18 11:53 D-Dimer 344 ng/mLFEU (0-500) 11/13/18 19:53 - Impressions Impressions Chest X-Ray 11/13/18 19:05 IMPRESSION: No evidence of acute cardiopulmonary disease. D/ / Jacob Emmanuel MD / Jacob Emmanuel MD Interpreting Provider: Jacob Emmanuel MD - Attending Attestation I have personally performed a face to face evaluation on this patient. I have reviewed and agree with the care plan. History and Exam by me shows: Patient seen complaining of some trouble swallowing on also had black stool on examination abdomen is benign. Assessment: 73-year-old male with the melena also some symptom of dysphagia along with anemia. Recommendation: EGD. Follow H&H.
[2018-11-14 12:21] LABS: INR 1.2; Prothrombin Time 13.3 Seconds (9.4-12.1)
[2018-11-14] MEDS: Insulin LISPRO 300 UNITS/3 ML VIAL SQ SCH ×2 (12:34→18:23)
--- NOTE | 2018-11-14 17:27 | Electrocardiograph Report ---
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
[2018-11-14] MEDS ORDERED: *HR* FentaNYL (PF) 100 MCG/2 ML VIAL ONE (17:47)
[2018-11-14] MEDS ORDERED: *HR* Midazolam HCl 5 MG/5 ML VIAL IVP ONE ×2 (17:48→17:59)
[2018-11-14] MEDS ORDERED: *HR* FentaNYL (PF) 100 MCG/2 ML VIAL IVP ONE (17:59)
[2018-11-14] MEDS ORDERED: Tetracaine/Benzocaine/Butamben 1 SPRAY AEROSOL MM ONE (17:59)
[2018-11-14] MEDS ORDERED: Simethicone 40 MG/0.6 ML MLS IR ONE (17:59)
--- NOTE | 2018-11-14 18:00 | Pre-Sedation Evaluation ---
Pre-sedation evaluation - Pre-sedation checklist Date of procedure: 11/14/18 Recent Vitals: Last Vital Signs Temp 97.7 F 11/14/18 15:14 Pulse 85 11/14/18 17:40 Resp 18 11/14/18 15:14 BP 132/74 11/14/18 15:14 Pulse Ox 94 11/14/18 17:40 ASA Classification *see protocol: CLASS III-Severe systemic disease Plan of Care: Pt appropriate candidate for procedure/moderate/conscious sedation, Risks/benefits of procedure/sedation discussed w/ patient/family
[2018-11-14] MEDS: Pantoprazole 40 MG VIAL IVP SCH (18:36)
[2018-11-14] MEDS: Gabapentin 300 MG CAPSULE PO SCH (20:34)
[2018-11-14] MEDS ORDERED: Insulin LISPRO 300 UNITS/3 ML VIAL SQ SCH (21:00)
[2018-11-15] MEDS: Pantoprazole 40 MG VIAL IVP SCH (06:19)
[2018-11-15] MEDS ORDERED: Insulin LISPRO 300 UNITS/3 ML VIAL SQ SCH (07:30)
[2018-11-15] MEDS: Gabapentin 300 MG CAPSULE PO SCH (09:00)
[2018-11-15 09:19] LABS: Basophils # 0.1 K/mcL (0.0-0.2); Basophils % 0.5 %; Eosinophils # 0.3 K/mcL (0.0-0.6); Eosinophils % 2.2 %; Hematocrit 27.5 % (37.5-50.1); Immature Granulocytes % 2.5 % (0-4); Lymphocytes # 2.1 K/mcL (0.6-4.6); Lymphocytes % 15.6 %; Mean Corpuscular HGB Conc 32.7 g/dL (31.6-35.5); Mean Corpuscular Hemoglobin 29.9 pg (28.0-33.3); Mean Corpuscular Volume 91.4 fL (83.0-100.0); Mean Platelet Volume 10.3 fL (9.4-12.4); Monocytes % 7.2 %; Neutrophils # 9.5 K/mcL (1.6-8.9); Nucleated Red Blood Cells 0.5 /100 WBC (0); Platelet Count 208 K/mcL (140-400); Red Blood Count 3.01 M/mcL (4.19-5.50); Red Cell Distribution Width 15.8 % (11.5-14.5)
[2018-11-15 09:33] LABS: Calcium 8.8 mg/dL (8.6-10.3); Potassium 3.9 mEq/L (3.5-5.1)
[2018-11-15 10:55] VITALS: BP 111/45
--- NOTE | 2018-11-15 14:44 | Discharge Summary ---
<Rashaad Gregory - Last Filed: 11/15/18 14:46> Orders not resulted at time of discharge: Pending orders 11/14/18 18:08 Surgical Pathology [PTH] Routine Date of Encounter: 11/15/18 Time of Encounter: 14:30 - Discharge Diagnosis (1) GI bleed Priority: Primary Status: Acute Qualifiers: GI bleed type/associated pathology: unspecified gastrointestinal hemorrhage type Qualified Code(s): K92.2 - Gastrointestinal hemorrhage, unspecified (2) Anemia Priority: Primary Status: Acute Qualifiers: Anemia type: unspecified type Qualified Code(s): D64.9 - Anemia, unspecified (3) Chest pain Priority: Secondary Status: Acute Qualifiers: Chest pain type: unspecified Qualified Code(s): R07.9 - Chest pain, unspe cified (4) Diabetes Priority: Secondary Status: Acute Qualifiers: Diabetes mellitus type: type 2 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 He noted that he is woken up and became short of breath when he was walking to his dining room. Also reported black stools 3 days prior to presentation. He noted that he had a history of a colonoscopy 8 years ago, and that one polyp was found. Denied having any vomiting, hematemesis, or bright red blood per rectum. Also reported intermittent chest pain without radiation. On presentation, he was found to be tachycardic at a rate of 112 bpm and respiratory rate of 22/m. Hemoglobin on arrival was found to be 7.8. Fecal occult blood was positive. Patient was typed and screened; transfused with 1 unit of packed red blood cells. The next day, patients hemoglobin was found to only have increased to 7.9; an additional unit of packed red blood cells as ordered. GI was consulted for possible upper GI bleed. EGD was performed on 11/14/18 and demonstrated the following: [place]-colored mucosa, nonbleeding gastric ulcer, gastritis, and duodenitis. No active bleeding source was found. Biopsies were taken. Per the recommendations of GI, patient will be discharged on Carafate twice a day for 2 months, and omeprazole twice daily. He is instructed to follow-up with Dr. Loaiza the outpatient setting in 4-6 weeks. GI also states the patient can resume his aspirin and Plavix. Patient was seen and examined on date of discharge; he states that he is feeling well today. Denies bloody bowel movements. Also denies chest pain, weakness, lightheadedness, abdominal pain, dysphagia, reflux, GERD, fever, chills, or malaise. He has no complaints. Time spent discussing smoking cessation with patient: more than 10 minutes - Time Spent with Patient Total time spent providing and/or coordinating discharge services: Time spent: Greater than 30 minutes - Discharge Medications Prescriptions: New Sucralfate [Carafate] 1 gm PO BID #60 tablet Omeprazole [PriLOSEC] 20 mg PO BIDAC #60 cap No Action Clopidogrel [Plavix] 75 mg PO DAILY Gabapentin [Neurontin] 300 mg PO BID HYDROcodone/Acet 5/325 mg [[place] 5-325 mg] 1 tab PO BID PRN PRN Reason: Mild To Moderate Pain Hydrocodone/Acetaminophen [[place] 5-325 Tablet] 2 tab PO HS hydroCHLOROthiazide [Hydrochlorothiazide] 25 mg PO DAILY Glimepiride [Amaryl] 4 mg PO DAILY Aspirin [Lo-Dose Aspirin EC] 81 mg PO DAILY Home Medications: Aspirin [Lo-Dose Aspirin EC] 81 mg PO DAILY 11/13/18 [History] Clopidogrel [Plavix] 75 mg PO DAILY 11/13/18 [History] Gabapentin [Neurontin] 300 mg PO BID 11/13/18 [History] Glimepiride [Amaryl] 4 mg PO DAILY 11/13/18 [History] HYDROcodone/Acet 5/325 mg [[place] 5-325 mg] 1 tab PO BID PRN 11/13/18 [History] Hydrocodone/Acetaminophen [[place] 5-325 Tablet] 2 tab PO HS 11/13/18 [History] hydroCHLOROthiazide [Hydrochlorothiazide] 25 mg PO DAILY 11/13/18 [History] Omeprazole [PriLOSEC] 20 mg PO BIDAC #60 cap 11/15/18 [Rx] Sucralfate [Carafate] 1 gm PO BID #60 tablet 11/15/18 [Rx] Allergies/Adverse Reactions: Allergy/AdvReac Type Severity Reaction Status Date / Time acetaminophen [From Percocet] AdvReac Headache Verified 11/13/18 21:37 oxycodone [From Percocet] AdvReac Headache Verified 11/13/18 21:37 Date of admission: 11/13/18 21:46 Primary care physician: Matt Hurtado MD Consults: 11/14/18 06:33 Consult to Gastroenterology [CONS] Routine Consulting Provider: Gastroenterology Margarette Reason for Consult: GI bleed Call Completed: No Discharging clinician: Rashaad Gregory Anticipated date of discharge: 11/15/18 - Constitutional Vitals: Temp Pulse Resp BP Pulse Ox 98.8 F 90 15 111/45 95 11/15/18 10:49 11/15/18 10:49 11/15/18 10:49 11/15/18 10:49 11/15/18 10:49 General appearance: Present: cooperative, A&O X 3, pleasant, no acute distress, answers questions appropriately Exam: General: A&O X3, conversant, no acute distress Head: atraumatic, normocephalic Eye: PERRL, EOMI, conjuntiva pink, sclera anicteric Neck: Supple, trachea midline; No lymphadenopathy Respiratory: CTAB. No accessory muscle use, wheezes, rales, or rhonchi Cardiovascular: RRR, +S1, +S2; no murmurs, rubs, gallops Abdomen: Soft, nontender Extremities: warm, radial pulses palpable and symmetrical Psychiatric: Normal affect, normal mood Skin: Dry, intact - Patient Status Disposition: Home, Self-Care Condition: Good Overall status at discharge: patient is progressing back to baseline - Discharge Instructions Instructions: Gastrointestinal Bleeding (DC), Anemia (DC) Follow Up With: Matt Hurtado MD [Primary Care Provider] - (Call the office to schedule a follow up appointment 2-4 weeks after discharge.) Lan Arora MD [Partnered Physician] - (Web-requested, the office will call the patient to schedule a follow up appointment. ) Additional Instructions: Follow up with Dr. Arora in the outpatient setting in 4-6 weeks. - Diet and Activity Activity: increase activity as tolerated Diet: advance to your usual diet <Latanya Birch - Last Filed: 11/15/18 16:51> Orders not resulted at time of discharge: Pending orders 11/14/18 18:08 Surgical Pathology [PTH] Routine Date of Encounter: 11/15/18 - Discharge Diagnosis (1) Chest pain Status: Acute Qualifiers: Chest pain type: unspecified Qualified Code(s): R07.9 - Chest pain, unspecified (2) Anemia Status: Acute Qualifiers: Anemia type: unspecified type Qualified Code(s): D64.9 - Anemia, unspecified (3) GI bleed Status: Acute Qualifiers: GI bleed type/associated pathology: unspecified gastrointestinal hemorrhage type Qualified Code(s): K92.2 - Gastrointestinal hemorrhage, unspecified (4) Diabetes Status: Acute Qualifiers: Diabetes mellitus type: type 2 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 Lr is a 73 year old male - Time Spent with Patient Total time spent providing and/or coordinating discharge services: Time spent: Greater than 30 minutes (40 min) Date of admission: 11/13/18 21:46 Primary care physician: Matt Hurtado MD Consults: 11/14/18 06:33 Consult to Gastroenterology [CONS] Routine Consulting Provider: Dakota Pfeiffer Reason for Consult: GI bleed Call Completed: No - Constitutional Vitals: Temp Pulse Resp BP Pulse Ox 98.8 F 90 15 111/45 95 11/15/18 10:49 11/15/18 10:49 11/15/18 10:49 11/15/18 10:49 11/15/18 10:49 - Patient Status Overall status at discharge: patient is back to baseline - Attending Attestation I examined this patient and my medical decision-making was reviewed with the Resident Physician Dr Gregory. I agree with the documented findings, disposition and treatment plan as described except to the extent set forth below. Mr Lr is being observed for suspected gib and anemia awake, no abd pain, nausea, emesis or black bms today. no lightheadedness, weakness of sob. happy to dc to home. discharge details discussed and all questions answered gen- alert, awake,appears stated age eyes- pupils equal round, no conjunctival pallor cv- reg rate and rhythm, normal s1,s2, no murmurs appreciated lungs- ctabl, normal resp effort abd- soft, non tender, non distended, + bs neuro- AAOx3 Shortness of breath, without hypoxia, suspect 2/2 gib anemia resolved with prbcs- CXR neg, gib work up/treatment Melena, stool occult + GIB 2/2 non bleeding ulcer and gastritis + duodenitis -s/p prbcs, serial h/hs no uptrending -outpt gi fu for bx results, ppi and carafate, ok to cont asa + plavix as per gi Acute anemia 2/2 gi blood loss as above Hemodynamically stable stable Chest pain, resolved CAD Hx with PCI most recently 5 yr ago HTN - home asa/plavix on dc may be cont per gi -trops negative and ekg without ischemic changes further diagnoses and plan as documented by resident time spent on dc 40 min
== END 2018-11-15 15:30 | disposition home or self-care (01) ==
LOC: EMEROOARM 19:01 → 3ANU 19:01 → SUATTDRO 21:46 → 3ANU 22:05
PROVIDERS: ADMIT Pediatrics; ATTEND Internal Medicine
PROC: ENDOEBX (2018-11-14 14:00)